=== PATIENT | male | born 1960 | race Caucasian/White ===

== ENCOUNTER 2017-07-29 09:01 | Emergency (ER) | payer BC ==
[2017-07-29 11:16] VITALS: BP 140/78
--- NOTE | 2017-07-29 11:27 | UC ---
Ear Complaint HPI - HPI Summary HPI Summary: Pt c/o of gradual onset right ear pain. Pt reports that he was using a Q tip yesterday just prior to onset of pain to right ear. - History of Current Complaint Chief Complaint: UCEar Stated Complaint: EAR PAIN Time Seen by Provider: 07/29/17 11:22 Hx Obtained From: Patient Onset/Duration: Gradual Onset, Lasting Hours, Still Present Severity Initially: Mild Severity Currently: Mild Aggravating Factors: Nothing Alleviating Factors: Nothing - Allergies/Home Medications Allergies/Adverse Reactions: Allergies Allergy/AdvReac Type Severity Reaction Status Date / Time No Known Allergies Allergy Verified 07/29/17 11:17 Home Medications: Home Medications NK [No Home Medications Reported] 07/29/17 [History Confirmed 07/29/17] PMH/Surg Hx/FS Hx/Imm Hx Previously Healthy: Yes - Surgical History Surgical History: Yes Surgery Procedure, Year, and Place: left shoulder, L knee - Family History Known Family History: Positive: Cardiac Disease - Social History Occupation: Employed Full-time Lives: With Family Alcohol Use: Rare Substance Use Type: None Smoking Status (MU): Never Smoked Tobacco Have You Smoked in the Last Year: No Review of Systems Constitutional: Negative Skin: Negative Eyes: Negative ENT: Ear Ache Respiratory: Negative Cardiovascular: Negative Gastrointestinal: Negative Genitourinary: Negative Motor: Negative Neurovascular: Negative Musculoskeletal: Negative Neurological: Negative Psychological: Negative Is Patient Immunocompromised?: No All Other Systems Reviewed And Are Negative: Yes Physical Exam Triage Information Reviewed: Yes Appearance: Well-Appearing Vital Signs: Initial Vital Signs Temp 97.8 F 07/29/17 11:11 Pulse 75 07/29/17 11:11 Resp 16 07/29/17 11:11 BP 140/78 07/29/17 11:11 Pulse Ox 100 07/29/17 11:11 Vital Signs Reviewed: Yes Eye Exam: Normal ENT Exam: Other ENT: Positive: Other - broken blood vessel in right TM Dental Exam: Normal Neck exam: Normal Respiratory Exam: Normal Cardiovascular Exam: Normal Abdominal Exam: Normal Musculoskeletal Exam: Normal Neurological Exam: Normal Psychological Exam: Normal Skin Exam: Normal Ear Complaint Course/Dx - Differential Dx/Diagnosis Differential Diagnosis/HQI/PQRI: Otitis Media, URI Provider Diagnoses: ear ache right ear Discharge - Discharge Plan Condition: Stable Disposition: HOME Patient Education Materials: Earache (ED) Referrals: Non Staff,Doctor [Primary Care Provider] - If Needed Additional Instructions: Please follow up with your PCP or return to clinic as needed.
== END 2017-07-29 11:46 | disposition home or self-care (01) ==
LOC: UCCORT 09:01
DX: H92.01 Otalgia, right ear (principal)
CPT/HCPCS: 99201; G0463

== ENCOUNTER 2017-09-05 08:18 | Emergency (ER) | payer BC ==
[2017-09-05 08:35] VITALS: BP 143/83
--- NOTE | 2017-09-05 09:00 | UC ---
Respiratory Complaint HPI - HPI Summary HPI Summary: Congestion, cough, sore throat for about 5 days. THis started with fever, chills and myalgias about 4-5 days ago. Slightly improved in that he is able to get out of bed now and get around but still has sore throat and congestion. No known fevers recently. No lung disease. Non smoker. - History of Current Complaint Chief Complaint: UCRespiratory Stated Complaint: SORE THROAT RIGHT EAR Time Seen by Provider: 09/05/17 08:28 Hx Obtained From: Patient Onset/Duration: Sudden Onset, Lasting Days Severity Initially: Severe Severity Currently: Moderate Character: Cough: Nonproductive Aggravating Factors: Deep Breaths, Recumbent Position Alleviating Factors: Nothing Associated Signs And Symptoms: Positive: URI, Nasal Congestion. Negative: Chills, Pleuritic Chest Pain, Hemoptysis, Dizziness, Calf Pain, Calf Swelling - Allergies/Home Medications Allergies/Adverse Reactions: Allergies Allergy/AdvReac Type Severity Reaction Status Date / Time No Known Allergies Allergy Verified 09/05/17 08:35 Home Medications: Home Medications Clonazepam [Klonopin] 1.5 mg PO DAILY PRN 09/05/17 [History Confirmed 09/05/17] Dextromethorphan-Phenylephrine [Vicks Dayquil Cold & Flu] 2 cap PO Q24H PRN 11/18 [History Confirmed 09/05/17] Ibuprofen TAB* [Motrin TAB* 400 MG] 400 mg PO Q12H PRN 09/05/17 [History Confirmed 09/05/17] Meloxicam [Vivlodex] 5 mg PO DAILY 09/05/17 [History Confirmed 09/05/17] [id number]-Ulsuaytcny-[id number] [Nyquil Severe Cold/Flu 5-6.25-10-325 mg/15Ml] 2 liq PO BEDTIME PRN 09/05/17 [History Confirmed 09/05/17] PMH/Surg Hx/FS Hx/Imm Hx Previously Healthy: No - No chronic lung disease. - Surgical History Surgical History: Yes Surgery Procedure, Year, and Place: left shoulder, L knee - Family History Known Family History: Positive: Cardiac Disease - Social History Alcohol Use: Rare Substance Use Type: None Smoking Status (MU): Never Smoked Tobacco Have You Smoked in the Last Year: No Review of Systems ENT: Sore Throat, Sinus Congestion Respiratory: Cough All Other Systems Reviewed And Are Negative: Yes Physical Exam Triage Information Reviewed: Yes Appearance: Well-Appearing, No Pain Distress, Well-Nourished Vital Signs: Initial Vital Signs Pulse 90 09/05/17 08:25 Resp 18 09/05/17 08:25 BP 143/83 09/05/17 08:25 Pulse Ox 100 09/05/17 08:25 Vital Signs Reviewed: Yes Eye Exam: Normal Eyes: Positive: Conjunctiva Clear ENT: Positive: Normal ENT inspection, Pharyngeal erythema, Nasal congestion, TMs normal, Uvula midline. Negative: TM bulging, TM dull, TM red, Tonsillar swelling, Tonsillar exudate, Trismus, Sinus tenderness Neck: Positive: Supple, Nontender, No Lymphadenopathy Respiratory: Positive: Chest non-tender, Lungs clear, Normal breath sounds, No respiratory distress, No accessory muscle use. Negative: Respiratory distress, Decreased breath sounds, Accessory muscle use, Crackles, Rhonchi, Stridor Cardiovascular: Positive: No Murmur, Pulses Normal, Brisk Capillary Refill Abdomen Description: Positive: No Organomegaly, Soft. Negative: Distended, Guarding Musculoskeletal: Positive: Strength Intact, ROM Intact, No Edema Neurological: Positive: Alert, Muscle Tone Normal. Negative: Fatigued Psychological: Positive: Age Appropriate Behavior Skin: Negative: rashes UC Diagnostic Evaluation - Laboratory O2 Sat by Pulse Oximetry: 100 Respiratory Course/Dx - Course Course Of Treatment: possible influenza. he is feeling somewhat better but is concerned that Sore throat is lingering. No clinical signs of bacterial infection. Supportive care described in detail and he will start antibiotic if not better by day 9./ - Differential Dx/Diagnosis Provider Diagnoses: viral uri. possible influenza. Discharge - Discharge Plan Condition: Good Disposition: HOME Prescriptions: Amoxicillin PO (*) [Amoxicillin 500 MG CAP*] 500 mg PO TID #30 cap Patient Education Materials: Upper Respiratory Infection (ED), Influenza (ED) Referrals: Non Staff,Doctor [Primary Care Provider] - Additional Instructions: Mucinex decongestant, vics, nasal irrigation or netti pot. Start amoxicillin if not better in 5 more days.
== END 2017-09-05 09:28 | disposition home or self-care (01) ==
LOC: UCCORT 08:18
DX: J06.9 Acute upper respiratory infection, unspecified (principal)
CPT/HCPCS: 99212; G0463

== ENCOUNTER 2018-07-23 16:51 | Emergency (ER) | payer BC ==
[2018-07-23 17:49] VITALS: BP 142/82
--- NOTE | 2018-07-23 18:24 | UC ---
UC General HPI - HPI Summary HPI Summary: 4 day hx head congestion, sore throat, loss of voice and cough with chest congestion. + chiils, no sob, cp or wheezing. no copd or asthma. - History of Current Complaint Chief Complaint: UCRespiratory Stated Complaint: SORE THROAT,COUGH,EARS Time Seen by Provider: 07/23/18 18:17 Hx Obtained From: Patient Onset/Duration: Gradual Onset Timing: Constant Pain Intensity: 0 - Allergy/Home Medications Allergies/Adverse Reactions: Allergies Allergy/AdvReac Type Severity Reaction Status Date / Time No Known Allergies Allergy Verified 07/23/18 17:42 Home Medications: Home Medications Dm/Acetaminophen/Doxylamine [Night Cold-Flu Relief Liq Gel] 1 each PO Q12HR PRN 07/23/18 [History Confirmed 07/23/18] Ibuprofen TAB* [Advil TAB*] 400 mg PO Q6H PRN 07/23/18 [History Confirmed ] PMH/Surg Hx/FS Hx/Imm Hx Psychological History: Anxiety - Surgical History Surgical History: Yes Surgery Procedure, Year, and Place: left shoulder, L knee - Family History Known Family History: Positive: Cardiac Disease - Social History Occupation: Employed Full-time Alcohol Use: Occasionally Substance Use Type: None Smoking Status (MU): Never Smoked Tobacco Have You Smoked in the Last Year: No - Immunization History Vaccination Up to Date: Yes Review of Systems All Other Systems Reviewed And Are Negative: Yes Constitutional: Positive: Chills Skin: Positive: Negative Eyes: Positive: Negative ENT: Positive: Sore Throat, Sinus Congestion Respiratory: Positive: Cough Cardiovascular: Positive: Negative Gastrointestinal: Positive: Negative Genitourinary: Positive: Negative Motor: Positive: Negative Neurovascular: Positive: Negative Musculoskeletal: Positive: Negative Neurological: Positive: Negative Psychological: Positive: Negative Physical Exam Triage Information Reviewed: Yes Appearance: Well-Appearing Vital Signs: Initial Vital Signs Temp 99.5 F 07/23/18 17:44 Pulse 90 07/23/18 17:44 Resp 18 07/23/18 17:44 BP 142/82 07/23/18 17:44 Pulse Ox 98 07/23/18 17:44 Vital Signs Reviewed: Yes Eyes: Positive: Conjunctiva Clear ENT: Positive: Pharyngeal erythema, Nasal congestion, Nasal drainage - clear, TMs normal, Hoarse voice, Uvula midline. Negative: Trismus, Muffled voice, Sinus tenderness Neck: Positive: Supple, Nontender, No Lymphadenopathy Respiratory: Positive: Lungs clear, Normal breath sounds, No respiratory distress Cardiovascular: Positive: RRR, No Murmur Abdomen Description: Positive: Nontender, No Organomegaly, Soft Bowel Sounds: Positive: Present Musculoskeletal: Positive: ROM Intact Neurological: Positive: Alert Psychological: Positive: Age Appropriate Behavior Skin Exam: Normal Diagnostics - Laboratory Diagnostic Studies Completed/Ordered: RAPID STREP=NEG Course/Dx - Course Course Of Treatment: non toxic. no concern for pneumonia. rapid strep=neg. tx supportive - Differential Dx - Multi-Symptom Provider Diagnoses: URI, pharyngitis, laryngitis, bronchitis Discharge - Sign-Out/Discharge Documenting (check all that apply): Patient Departure All imaging exams completed and their final reports reviewed: No Studies - Discharge Plan Condition: Stable Disposition: HOME Patient Education Materials: Upper Respiratory Infection (DC), Acute Bronchitis (ED), Laryngitis (ED) Additional Instructions: FOLLOW UP WITH YOUR PRIMARY CARE IN [place] IN 5-7 DAYS OR A RECHECK OR SOONER IF WORSE. - Billing Disposition and Condition Condition: STABLE Disposition: Home
[2018-07-23] MEDS ORDERED: Dexamethasone TAB* 4 MG PO ONE (18:25)
== END 2018-07-23 18:44 | disposition home or self-care (01) ==
LOC: UCCORT 16:51
DX: J06.9 Acute upper respiratory infection, unspecified (principal); J02.9 Acute pharyngitis, unspecified; J40 Bronchitis, not specified as acute or chronic; J04.0 Acute laryngitis
CPT/HCPCS: 87651; 99212; G0463; J8540